=== PATIENT | male | born 1980 | race Caucasian/White ===

== ENCOUNTER 2017-07-08 23:16 | Emergency (ER) | payer OTHER, SELFPAY ==
[~2017-07-08] VITALS: Ht 177.8 cm; Wt 100.7 kg
[2017-07-08] MEDS ORDERED: MAALOX/HYOSCYAMINE/LIDOCAINE 45 ML BTL ONE (23:51)
[2017-07-09] MEDS ORDERED: MAALOX/HYOSCYAMINE/LIDOCAINE 45 ML BTL PO ONE
[2017-07-09 00:03] LABS: HEMATOCRIT 47.8 % (39.2-51.8); HEMOGLOBIN 16.5 g/dL (13.7-18.0); WHITE BLOOD COUNT 7.9 x10^3/uL (3.4-10)
[2017-07-09 00:13] LABS: ASPARTATE AMINO TRANSFERASE 24 U/L (15-37); BLOOD UREA NITROGEN 11 mg/dL (7-18)
[2017-07-09 00:14] VITALS: BP 107/70
== END 2017-07-09 01:22 | disposition home or self-care (01) ==
LOC: ED 07-09 01:21
DX: K29.00 Acute gastritis without bleeding (principal); F17.200 Nicotine dependence, unspecified, uncomplicated; K25.9 Gastric ulcer, unspecified as acute or chronic, without hemorrhage or perforation
CPT/HCPCS: 36415; 80053; 81003; 83690; 85025; 86677; 99284